=== PATIENT | female | born 1960 | race Caucasian/White ===

== ENCOUNTER 2023-04-07 11:39 | Inpatient (IN) | payer BC ==
[2023-04-07 12:29] VITALS: BMI 24.7
[2023-04-07] MEDS ORDERED: MAGNESIUM HYDROX 2400MG/30ML ORAL SUSPENSION 30 ML CUP PO PRN (12:59)
[2023-04-07] MEDS ORDERED: BISMUTH SUBSALICYLATE 262 MG/15 ML BTL PO PRN (12:59)
[2023-04-07] MEDS ORDERED: NALOXONE HCL 0.4 MG/ML VIAL IM PRN (12:59)
[2023-04-07] MEDS ORDERED: BENZOCAINE/MENTHOL (CHLORASEPTIC ) LOZENGE MM PRN (12:59)
[2023-04-07] MEDS ORDERED: DICYCLOMINE HCL 10 MG CAPSULE PO PRN (12:59)
[2023-04-07] MEDS ORDERED: guaiFENesin 600 MG TABLET.ER (FP) PO PRN (12:59)
[2023-04-07] MEDS ORDERED: LOPERAMIDE HCL 2 MG CAPSULE PO PRN (12:59)
[2023-04-07] MEDS ORDERED: NALOXONE HCL (KLOXXADO) 8 MG SPRAY NS PRN (12:59)
[2023-04-07] MEDS ORDERED: IBUPROFEN 600 MG TABLET (FP) PO PRN (12:59)
[2023-04-07] MEDS ORDERED: ACETAMINOPHEN 325 MG TABLET (FP) PO PRN (12:59)
[2023-04-07] MEDS ORDERED: MAG HYDROX/AL HYDROX/SIMETH 30 ML UNIT-DOSE CUP PO PRN (12:59)
[2023-04-07] MEDS ORDERED: ONDANSETRON *ODT* 4 MG TABLET SL PRN (12:59)
[2023-04-07] MEDS ORDERED: BENZONATATE 200 MG CAPSULE PO PRN (12:59)
[2023-04-07] MEDS ORDERED: METHOCARBAMOL 500 MG TABLET PO PRN (12:59)
[2023-04-07] MEDS ORDERED: POLYETHYLENE GLYCOL (HEALTHYLAX) 3350 17 GM PACKET PO PRN (12:59)
[2023-04-07] MEDS ORDERED: hydrOXYzine PAMOATE 25 MG CAPSULE (FP) PO PRN (12:59)
[2023-04-07] MEDS ORDERED: IBUPROFEN 400 MG TABLET (FP) PO PRN (12:59)
[2023-04-07] MEDS: PRENATAL VITAMINS W/ FOLIC ACID TABLET (FP) PO SCH (13:59)
[2023-04-07] MEDS: LORazepam 1 MG TABLET PO PRN (13:59)
[2023-04-07] MEDS ORDERED: LORazepam 1 MG TABLET ONE (14:01)
[2023-04-07] MEDS ORDERED: PRENATAL VITAMINS W/ FOLIC ACID TABLET (FP) PO ONE (14:01)
[2023-04-07] MEDS: LORazepam 2 MG TABLET PO SCH ×2 (17:03→22:02)
[2023-04-07] MEDS ORDERED: MELATONIN 5 MG TABLETS PO SCH (22:00)
[2023-04-07] MEDS: THIAMINE HCL 100 MG TABLET (FP) PO SCH (22:02)
[2023-04-07] MEDS: ATORVASTATIN CA 20 MG TABLET (FP) PO SCH (22:04)
[2023-04-07] MEDS: GABAPENTIN 100 MG CAPSULE PO SCH (22:05)
[2023-04-08] MEDS: LORazepam 2 MG TABLET PO SCH ×4 (04:55→22:18)
[2023-04-08] MEDS: GABAPENTIN 100 MG CAPSULE PO SCH ×2 (10:00→22:17)
[2023-04-08] MEDS: PANTOPRAZOLE 20 MG TABLET PO SCH (10:00)
[2023-04-08] MEDS: CARVEDILOL 6.25 MG TABLET (FP) PO SCH (10:00)
[2023-04-08] MEDS: PRENATAL VITAMINS W/ FOLIC ACID TABLET (FP) PO SCH (10:00)
[2023-04-08] MEDS: FLUoxetine HCL 10 MG CAPSULE PO SCH (10:01)
[2023-04-08 12:14] LABS: HEMATOCRIT 36.9 % (32.4-45.2); HEMOGLOBIN 11.9 GM/dL (10.7-15.3); MCH 31.3 pg (25.7-33.7); MCHC 32.4 g/dl (32.0-36.0); MEAN CELL VOLUME 96.5 fl (80-96); MEAN PLT VOLUME 8.3 fl (7.5-11.1); PLATELET COUNT 318 10^3/uL (134-434); RBC 3.82 M/mm3 (3.60-5.2); RDW 13.7 % (11.6-15.6); WHITE BLOOD COUNT 4.2 K/mm3 (4.0-10.0)
[2023-04-08 12:58] LABS: CALCIUM 8.6 mg/dL (8.5-10.1)
[2023-04-08 12:59] LABS: BLOOD UREA NITROGEN 17.1 mg/dL (7-18)
[2023-04-08 13:02] LABS: CREATININE 0.7 mg/dL (0.55-1.3)
[2023-04-08 13:03] LABS: BILIRUBIN,TOTAL 0.2 mg/dL (0.2-1)
[2023-04-08] MEDS: LACTULOSE 20 GM/30 ML UDC (FOR ORAL USE ONLY) PO SCH ×3 (14:04→22:18)
[2023-04-08] MEDS: HYDROCORTISONE 2.5% TOPICAL CREAM 30 GM TUBE TP SCH ×2 (19:19→20:27)
[2023-04-08] MEDS ORDERED: CARVEDILOL 3.125 MG TABLET (FP) PO ONE (22:00)
[2023-04-08] MEDS: MIRTAZAPINE 15 MG TABLET (FP) PO SCH (22:17)
[2023-04-08] MEDS: ATORVASTATIN CA 20 MG TABLET (FP) PO SCH (22:17)
[2023-04-08] MEDS: QUEtiapine FUMARATE 50 MG TABLET PO SCH (22:17)
[2023-04-08] MEDS: THIAMINE HCL 100 MG TABLET (FP) PO SCH (22:17)
[2023-04-09] MEDS: LORazepam 1 MG TABLET PO SCH ×4 (05:34→22:02)
[2023-04-09] MEDS: PRENATAL VITAMINS W/ FOLIC ACID TABLET (FP) PO SCH (10:11)
[2023-04-09] MEDS: FLUoxetine HCL 10 MG CAPSULE PO SCH (10:11)
[2023-04-09] MEDS: LACTULOSE 20 GM/30 ML UDC (FOR ORAL USE ONLY) PO SCH ×4 (10:11→22:58)
[2023-04-09] MEDS: CARVEDILOL 6.25 MG TABLET (FP) PO SCH ×2 (10:11→21:55)
[2023-04-09] MEDS: PANTOPRAZOLE 20 MG TABLET PO SCH (10:11)
[2023-04-09] MEDS: LOSARTAN POTASSIUM 50 MG TABLET PO SCH (10:11)
[2023-04-09] MEDS: GABAPENTIN 100 MG CAPSULE PO SCH ×2 (10:11→21:55)
[2023-04-09] MEDS: HYDROCORTISONE 2.5% TOPICAL CREAM 30 GM TUBE TP SCH (10:11)
[2023-04-09] MEDS: BENZOCAINE 28 GM HEMORRHOIDAL OINTMENT RC SCH ×3 (12:19→22:58)
[2023-04-09] MEDS: LORazepam 1 MG TABLET PO PRN (13:06)
[2023-04-09] MEDS: ATORVASTATIN CA 20 MG TABLET (FP) PO SCH (21:55)
[2023-04-09] MEDS: MIRTAZAPINE 15 MG TABLET (FP) PO SCH (21:55)
[2023-04-09] MEDS: QUEtiapine FUMARATE 50 MG TABLET PO SCH (21:55)
[2023-04-09] MEDS: THIAMINE HCL 100 MG TABLET (FP) PO SCH (21:55)
[2023-04-10] MEDS ORDERED: LORazepam 0.5 MG TABLET PO PRN
[2023-04-10] MEDS: LORazepam 0.5 MG TABLET PO SCH ×2 (05:53→10:19)
[2023-04-10] MEDS: BENZOCAINE 28 GM HEMORRHOIDAL OINTMENT RC SCH ×2 (05:55→10:20)
[2023-04-10 09:29] VITALS: RESP 16
[2023-04-10] MEDS: CARVEDILOL 6.25 MG TABLET (FP) PO SCH (10:19)
[2023-04-10] MEDS: FLUoxetine HCL 10 MG CAPSULE PO SCH (10:19)
[2023-04-10] MEDS: PRENATAL VITAMINS W/ FOLIC ACID TABLET (FP) PO SCH (10:19)
[2023-04-10] MEDS: GABAPENTIN 100 MG CAPSULE PO SCH (10:19)
[2023-04-10] MEDS: LOSARTAN POTASSIUM 50 MG TABLET PO SCH (10:19)
[2023-04-10] MEDS: PANTOPRAZOLE 20 MG TABLET PO SCH (10:19)
[2023-04-10] MEDS: HYDROCORTISONE 2.5% TOPICAL CREAM 30 GM TUBE TP SCH (10:20)
[2023-04-10] MEDS: LACTULOSE 20 GM/30 ML UDC (FOR ORAL USE ONLY) PO SCH ×2 (10:21→13:32)
[2023-04-10 13:16] VITALS: BP 90/69; PULSE 80; TEMP 97.7
[2023-04-11] MEDS ORDERED: LORazepam 0.5 MG TABLET PO ONE (05:00)
== END 2023-04-10 15:15 | disposition home or self-care (01) | DRG 897 ==
LOC: YASAS 11:39 → Y6N 14:06
PROVIDERS: ADMIT Allergy & Immunology; ATTEND Surgery
PROC: HZ2ZZZZ Detoxification Services for Substance Abuse Treatment (ICD-10-PCS; principal; 2023-04-07)
DX: F10.230 Alcohol dependence with withdrawal, uncomplicated (principal); F31.9 Bipolar disorder, unspecified; F43.10 Post-traumatic stress disorder, unspecified; E78.5 Hyperlipidemia, unspecified; I10 Essential (primary) hypertension; K21.9 Gastro-esophageal reflux disease without esophagitis; K76.0 Fatty (change of) liver, not elsewhere classified; R79.89 Other specified abnormal findings of blood chemistry; Z62.810 Personal history of physical and sexual abuse in childhood; Z91.410 Personal history of adult physical and sexual abuse; Z87.891 Personal history of nicotine dependence; Z86.69 Personal history of other diseases of the nervous system and sense organs; Z87.19 Personal history of other diseases of the digestive system; Z88.8 Allergy status to other drugs, medicaments and biological substances
CPT/HCPCS: 36415; 80053; 82140; 83036; 85027; 86780; 87635; 93005; 93010